=== PATIENT | male | born 1950 | race Caucasian/White ===

== ENCOUNTER → 2017-09-22 | Outpatient (CLI) | payer OTHER ==
--- NOTE | 2017-09-22 15:49 | Diagnostic Imaging Report ---
PROCEDURE:US ABDOMEN LIMITED COMPARISON:None. INDICATIONS:RUQ Pain TECHNIQUE: Graves-scale and color Doppler transverse and longitudinal images of the right upper quadrant of the abdomen were obtained. FINDINGS: Images are compromised due to patient's generous body habitus Liver: 15.8 cm in right mid-clavicular line. Diffusely increased echogenicity. No masses. Main portal vein: Not visualized due to a hyperechogenicity of the liver Gallbladder: Present. No gallstones are identified. No gallbladder wall thickening or pericholecystic fluid Common Bile Duct: Not visualized. Sonographic Yeung's sign: Negative Right kidney: 10.6 cm. Normal echogenicity. No solid masses or hydronephrosis. Pancreas: Visualized portions are increased in echotexture without mass or ductal dilatation. The IVC is not visualized due to bowel gas. The distal aorta is normal in diameter. There is no free fluid. CONCLUSION: 1. Severe hepatic steatosis. No hepatomegaly. 2. No evidence of cholelithiasis. 3. Poor visualization of the common bile duct, main portal vein, and IVC as described above. Dictated by: Georgina Alvarado M.D. on 09/22/2017 at 15:57 Electronically approved by: Georgina Alvarado M.D. on 09/22/2017 at 15:57
== END ==
LOC: US 14:43
PROVIDERS: ATTEND Family Medicine
DX: R10.11 Right upper quadrant pain (principal); R19.8 Other specified symptoms and signs involving the digestive system and abdomen
CPT/HCPCS: 76705